=== PATIENT | male | born 1955 | race Hispanic/Latino ===

== ENCOUNTER 2025-07-08 13:26 | Inpatient (IN) | payer MEDICARE ==
[~2025-07-08] VITALS: Ht 172.7 cm; Wt 78.5 kg
[2025-07-08] MEDS: ACETAMINOPHEN 325 MG TAB PO ONE (14:15)
[2025-07-08] MEDS: SODIUM CHLORIDE 0.9% 1000ML 1,000 ML IV ONE (14:15)
[2025-07-08 14:25] LABS: BASOPHILS % 0.1 % (0.0-1.0); EOSINOPHILS % 0.0 % (0.0-6.0); LYMPHOCYTES % 7.1 % (18.0-39.1); MONOCYTES % 4.9 % (4.4-11.3); NEUTROPHILS % 87.4 % (38.7-80.0); RED CELL DISTRIBUTION WIDTH 12.7 % (11.7-14.4)
[2025-07-08 14:34] LABS: INR 1.2
[2025-07-08 14:41] LABS: CORONAVIRUS COVID-19 AG NEGATIVE (NEGATIVE); EST GLOMERULAR FILTRATION RATE 67.0 ML/MIN (>=60)
[2025-07-08] MEDS: SODIUM CHLORIDE 0.9% IV SCH (15:48)
[2025-07-08] MEDS ORDERED: IOPAMIDOL 370 MG/ML 100 ML INFUS..BTL INJ ONE (15:54)
[2025-07-08] MEDS ORDERED: Morphine 2mg Syringe 2 MG/ML SYR IV PRN (16:30)
[2025-07-08] MEDS ORDERED: ONDANSETRON HCL INJ 2MG/ML 2ML 2 MG/ML VIAL IV PRN (16:30)
[2025-07-08] MEDS: POTASSIUM CHLORIDE 20MEQ/100ML 200 ML IV ONE (16:52)
[2025-07-08 17:02] LABS: LEUKOCYTE ESTERASE ,URINE NEGATIVE (NEGATIVE); PROTEIN,URINE DIPSTICK 2+ (NEGATIVE); URINE UROBILINOGEN 0.2 mg/dL (0.2 - 1)
[2025-07-08 17:12] LABS: EPITHELIAL CELLS,URINE FEW /LPF; WBC,URINE (MAN) 0-5 /HPF (0-5)
[2025-07-08 17:47] VITALS: PULSE 100; RESP 18; TEMP 99.3
[2025-07-08 20:00] VITALS: BP 172/81; PULSE 108; RESP 20; TEMP 98.9; O2SAT 96
[2025-07-08 21:00] VITALS: BP 172/81; PULSE 108; RESP 20; TEMP 98.9; O2SAT 96
[2025-07-08 23:00] VITALS: BP 172/81; PULSE 108; RESP 20; TEMP 98.9; O2SAT 96
[2025-07-08] MEDS: SODIUM CHLORIDE 0.9% 1000ML 1,000 ML IV SCH (23:07)
[2025-07-09] VITALS (7 sets, daily range): BP systolic 124–165; BP diastolic 56–81; PULSE 102–118; RESP 17–20; TEMP 97.5–100.8; O2SAT 93–99
[2025-07-09] MEDS ORDERED: GLIMEPIRIDE2 MG PO (04:12)
[2025-07-09] MEDS ORDERED: ATORVASTATIN CA40 MG PO (04:12)
[2025-07-09] MEDS ORDERED: NORVASC5 MG PO (04:12)
[2025-07-09] MEDS ORDERED: METFORMIN HCL850 MG PO (04:12)
[2025-07-09 05:58] LABS: BASOPHILS % 0.3 % (0.0-1.0); EOSINOPHILS % 0.0 % (0.0-6.0); LYMPHOCYTES % 12.6 % (18.0-39.1); MONOCYTES % 4.1 % (4.4-11.3); NEUTROPHILS % 82.6 % (38.7-80.0); RED CELL DISTRIBUTION WIDTH 12.9 % (11.7-14.4)
[2025-07-09 06:55] LABS: EST GLOMERULAR FILTRATION RATE 80.0 ML/MIN (>=60)
[2025-07-09 08:08] LABS: PHOSPHORUS 2.4 MG/DL (2.3-4.7)
[2025-07-09] MEDS ORDERED: DEXTROSE 50% SYRINGE 50 ML IV PRN (09:00)
[2025-07-09] MEDS ORDERED: Morphine 4mg INJECTION 4 MG/ML INJ IV PRN (09:00)
[2025-07-09] MEDS: MAGNESIUM SULFATE 2GM/50ML 50 ML IV SCH (09:19)
[2025-07-09] MEDS: POTASSIUM PHOSPHATE 20 MM in SODIUM CHLORIDE 0.9% 250ML 250 ML IV SCH (09:20)
[2025-07-09] MEDS ORDERED: MAGNESIUM SULFATE 2GM/50ML IV SCH (10:00)
[2025-07-09] MEDS: INSULIN LISPRO 100 UNIT/1 ML 3ML VIAL SQ SCH (11:30)
[2025-07-09] MEDS: KCL 40MEQ/0.9% SOD CHL 1,000 ML IV SCH (11:54)
[2025-07-09] MEDS: ACETAMINOPHEN 325 MG TAB PO PRN (11:54)
[2025-07-09 14:29] LABS: CDIFF AG QUIK CHEK NEGATIVE (NEGATIVE); CDIFF TOX QUIK CHEK NEGATIVE (NEGATIVE)
[2025-07-09] MEDS: SODIUM CHLORIDE 0.9% 250ML 250 ML ONE (18:39)
[2025-07-10] MEDS ORDERED: DICYCLOMINE HCL 20 MG TAB PO STA (00:48)
[2025-07-10 05:46] VITALS: BP 127/73; PULSE 95; RESP 22; TEMP 97.8; O2SAT 95
[2025-07-10 06:09] LABS: BASOPHILS % 0.1 % (0.0-1.0); EOSINOPHILS % 0.2 % (0.0-6.0); LYMPHOCYTES % 12.7 % (18.0-39.1); MONOCYTES % 4.7 % (4.4-11.3); NEUTROPHILS % 81.2 % (38.7-80.0); RED CELL DISTRIBUTION WIDTH 12.5 % (11.7-14.4)
[2025-07-10 06:24] LABS: EST GLOMERULAR FILTRATION RATE 79.0 ML/MIN (>=60)
[2025-07-10 06:44] LABS: PHOSPHORUS 2.0 MG/DL (2.3-4.7)
[2025-07-10 08:17] VITALS: BP 107/60; PULSE 96; RESP 17; TEMP 98; O2SAT 96
[2025-07-10 09:00] VITALS: BP 107/60; PULSE 96; RESP 17; TEMP 98; O2SAT 96
[2025-07-10] MEDS ORDERED: DICYCLOMINE HCL 20 MG TAB PO SCH (09:00)
[2025-07-10] MEDS: POTASSIUM CHLORIDE 20 MEQ TAB CR PO ONE (09:16)
[2025-07-10 10:45] LABS: BAND NEUTROPHILS % (MANUAL) 7 %; LYMPHOCYTES % (MANUAL) 8 % (19-48); METAMYELOCYTES % (MANUAL) 3 % (0-0); MONOCYTES % (MANUAL) 4 % (3.4-9.0); NEUTROPHILS % (MANUAL) 73 % (40-74); PLATELET ESTIMATE ADEQUATE; PLATELET MORPHOLOGY COMMENT NORMAL; RBC MORPHOLOGY COMMENT NORMAL; REACTIVE LYMPHOCYTES 5
[2025-07-10 11:31] VITALS: BP 119/72; PULSE 94; RESP 18; TEMP 97.6; O2SAT 97
[2025-07-10] MEDS: POTASSIUM PHOSPHATE 20 MM in SODIUM CHLORIDE 0.9% 250ML 250 ML IV ONE (12:51)
[2025-07-10 16:17] VITALS: BP 146/75; PULSE 92; RESP 18; TEMP 98.5; O2SAT 96
[2025-07-10 20:00] VITALS: BP 130/68; PULSE 82; RESP 20; TEMP 97.3; O2SAT 100
[2025-07-10] MEDS: METRONIDAZOLE 500MG/NS 100ML 100 ML IV SCH (21:44)
[2025-07-11] VITALS (8 sets, daily range): BP systolic 107–135; BP diastolic 58–97; PULSE 72–89; RESP 18–20; TEMP 97.7–99.6; O2SAT 96–100
[2025-07-11] MEDS ORDERED: SODIUM CHLORIDE 0.9% 100 ML ONE (08:39)
[2025-07-11] MEDS: CEFTRIAXONE 2 GM in SODIUM CHLORIDE 0.9% 100 ML IV SCH (10:00)
[2025-07-11 10:24] LABS: BASOPHILS % 1.1 % (0.0-1.0); EOSINOPHILS % 2.9 % (0.0-6.0); LYMPHOCYTES % 14.6 % (18.0-39.1); MONOCYTES % 10.8 % (4.4-11.3); NEUTROPHILS % 68.9 % (38.7-80.0); RED CELL DISTRIBUTION WIDTH 13.0 % (11.7-14.4)
[2025-07-11 10:47] LABS: PHOSPHORUS 1.9 MG/DL (2.3-4.7)
[2025-07-11 10:48] LABS: EST GLOMERULAR FILTRATION RATE 90.0 ML/MIN (>=60)
[2025-07-11 11:03] LABS: BAND NEUTROPHILS % (MANUAL) 3 %; EOSINOPHILS % (MANUAL) 2 % (0-7); LYMPHOCYTES % (MANUAL) 21 % (19-48); MONOCYTES % (MANUAL) 7 % (3.4-9.0); NEUTROPHILS % (MANUAL) 65 % (40-74); PLATELET ESTIMATE ADEQUATE; PLATELET MORPHOLOGY COMMENT NORMAL; REACTIVE LYMPHOCYTES 2
[2025-07-11] MEDS: CHOLESTYRAMINE 4 GM PACKET PO SCH (11:52)
[2025-07-11] MEDS: HYDROCODONE/APAP 7.5MG-325MG 1 EA TAB PO PRN (11:59)
[2025-07-12] VITALS (7 sets, daily range): BP systolic 114–138; BP diastolic 57–83; PULSE 63–85; RESP 18–24; TEMP 96.2–99.7; O2SAT 96–97
[2025-07-12 08:27] LABS: BASOPHILS % 0.7 % (0.0-1.0); EOSINOPHILS % 2.2 % (0.0-6.0); LYMPHOCYTES % 16.7 % (18.0-39.1); MONOCYTES % 11.4 % (4.4-11.3); NEUTROPHILS % 66.5 % (38.7-80.0); RED CELL DISTRIBUTION WIDTH 13.2 % (11.7-14.4)
[2025-07-12 08:42] LABS: PHOSPHORUS 2.6 MG/DL (2.3-4.7)
[2025-07-12 09:18] LABS: EST GLOMERULAR FILTRATION RATE 90.0 ML/MIN (>=60)
[2025-07-12 12:24] LABS: BAND NEUTROPHILS % (MANUAL) 26 %; EOSINOPHILS % (MANUAL) 6 % (0-7); LYMPHOCYTES % (MANUAL) 25 % (19-48); METAMYELOCYTES % (MANUAL) 1 % (0-0); MONOCYTES % (MANUAL) 8 % (3.4-9.0); NEUTROPHILS % (MANUAL) 33 % (40-74); REACTIVE LYMPHOCYTES 1
[2025-07-12 12:25] LABS: PLATELET ESTIMATE ADEQUATE; PLATELET MORPHOLOGY COMMENT NORMAL; RBC MORPHOLOGY COMMENT NORMAL
[2025-07-12] MEDS ORDERED: CIPROFLOXACIN 400 MG/D5W 200ML 200 ML IV SCH (22:30)
[2025-07-13] VITALS: BP 125/72; PULSE 62; RESP 18; TEMP 98.6; O2SAT 98
[2025-07-13] MEDS: CIPROFLOXACIN 500 MG TAB PO STA (00:09)
[2025-07-13 08:00] VITALS: BP 127/69; PULSE 64; RESP 20; TEMP 99.5; O2SAT 100
[2025-07-13] MEDS: CIPROFLOXACIN 500 MG TAB PO SCH (08:48)
[2025-07-13 16:00] VITALS: BP 119/70; PULSE 66; RESP 17; TEMP 99; O2SAT 100
[2025-07-13 20:00] VITALS: BP 120/70; PULSE 68; RESP 18; TEMP 97.9; O2SAT 100
[2025-07-13 21:00] VITALS: BP 119/70; PULSE 66; RESP 17; TEMP 99; O2SAT 100
[2025-07-14 08:56] VITALS: BP 128/74; PULSE 57; RESP 18; TEMP 97.2; O2SAT 100
[2025-07-14 10:00] VITALS: BP 128/74; PULSE 57; RESP 18; TEMP 97.2; O2SAT 100
[2025-07-14 10:01] LABS: BASOPHILS % 0.6 % (0.0-1.0); EOSINOPHILS % 2.4 % (0.0-6.0); LYMPHOCYTES % 19.7 % (18.0-39.1); MONOCYTES % 8.1 % (4.4-11.3); NEUTROPHILS % 63.2 % (38.7-80.0); RED CELL DISTRIBUTION WIDTH 13.2 % (11.7-14.4)
[2025-07-14 10:16] LABS: EST GLOMERULAR FILTRATION RATE 87.0 ML/MIN (>=60); PHOSPHORUS 2.8 MG/DL (2.3-4.7)
[2025-07-14 11:41] VITALS: BP 120/63; PULSE 72; RESP 18; TEMP 97.6; O2SAT 99
[2025-07-14 12:27] LABS: BAND NEUTROPHILS % (MANUAL) 2 %; EOSINOPHILS % (MANUAL) 5 % (0-7); LYMPHOCYTES % (MANUAL) 12 % (19-48); MONOCYTES % (MANUAL) 5 % (3.4-9.0); NEUTROPHILS % (MANUAL) 73 % (40-74); REACTIVE LYMPHOCYTES 3
[2025-07-14 12:28] LABS: PLATELET ESTIMATE ADEQUATE; PLATELET MORPHOLOGY COMMENT NORMAL
[2025-07-14 15:50] VITALS: BP 116/63; PULSE 69; RESP 18; TEMP 98.1; O2SAT 99
[2025-07-14 20:00] VITALS: BP 127/67; PULSE 62; RESP 18; TEMP 98; O2SAT 100
[2025-07-14 21:00] VITALS: BP 127/67; PULSE 62; RESP 18; TEMP 98; O2SAT 100
[2025-07-14] MEDS ORDERED: HYDROCODONE/APAP 7.5MG-325MG 1 EA TAB PO PRN (22:45)
[2025-07-14] MEDS ORDERED: IOPAMIDOL 370 MG/ML 100 ML INFUS..BTL INJ ONE (23:19)
[2025-07-15] VITALS (7 sets, daily range): BP systolic 118–125; BP diastolic 55–71; PULSE 57–67; RESP 16–18; TEMP 97.4–98.3; O2SAT 98–100
[2025-07-15] MEDS ORDERED: Morphine 2mg Syringe 2 MG/ML SYR IV PRN (00:30)
[2025-07-15 06:35] LABS: BASOPHILS % 0.5 % (0.0-1.0); EOSINOPHILS % 1.7 % (0.0-6.0); LYMPHOCYTES % 23.1 % (18.0-39.1); MONOCYTES % 7.5 % (4.4-11.3); NEUTROPHILS % 60.5 % (38.7-80.0); RED CELL DISTRIBUTION WIDTH 13.3 % (11.7-14.4)
[2025-07-15 06:51] LABS: EST GLOMERULAR FILTRATION RATE 75.0 ML/MIN (>=60)
[2025-07-15] MEDS ORDERED: IOPAMIDOL 370 MG/ML 100 ML INFUS..BTL INJ ONE (08:23)
[2025-07-15 09:41] LABS: LYMPHOCYTES % (MANUAL) 19 % (19-48); MONOCYTES % (MANUAL) 8 % (3.4-9.0); NEUTROPHILS % (MANUAL) 73 % (40-74); NUCLEATED RED BLOOD CELLS 1; PLATELET ESTIMATE ADEQUATE
[2025-07-15 09:42] LABS: PLATELET MORPHOLOGY COMMENT NORMAL; RBC MORPHOLOGY COMMENT NORMAL
[2025-07-15] MEDS: METRONIDAZOLE 500MG/NS 100ML 100 ML IV SCH (19:15)
[2025-07-15] MEDS: CEFEPIME 2 GM in SODIUM CHLORIDE 0.9% 100 ML IV SCH (21:35)
[2025-07-16] VITALS (8 sets, daily range): BP systolic 110–142; BP diastolic 51–69; PULSE 59–71; RESP 16–19; TEMP 97–98.1; O2SAT 97–99
[2025-07-16 06:44] LABS: BASOPHILS % 0.7 % (0.0-1.0); EOSINOPHILS % 1.5 % (0.0-6.0); LYMPHOCYTES % 15.0 % (18.0-39.1); MONOCYTES % 7.1 % (4.4-11.3); NEUTROPHILS % 68.9 % (38.7-80.0); RED CELL DISTRIBUTION WIDTH 13.5 % (11.7-14.4)
[2025-07-16 07:17] LABS: EST GLOMERULAR FILTRATION RATE 94.0 ML/MIN (>=60)
[2025-07-16 12:21] LABS: EOSINOPHILS % (MANUAL) 1 % (0-7); LYMPHOCYTES % (MANUAL) 15 % (19-48); MONOCYTES % (MANUAL) 7 % (3.4-9.0); NEUTROPHILS % (MANUAL) 77 % (40-74); PLATELET ESTIMATE ADEQUATE; PLATELET MORPHOLOGY COMMENT NORMAL; RBC MORPHOLOGY COMMENT NORMAL
[2025-07-17] VITALS (9 sets, daily range): BP systolic 112–136; BP diastolic 59–72; PULSE 51–69; RESP 16–18; TEMP 97.4–98.6; O2SAT 98–100
[2025-07-17] MEDS: CIPROFLOXACIN 500 MG TAB PO STA (00:51)
[2025-07-17 07:09] LABS: BASOPHILS % 0.4 % (0.0-1.0); EOSINOPHILS % 1.4 % (0.0-6.0); LYMPHOCYTES % 19.2 % (18.0-39.1); MONOCYTES % 7.7 % (4.4-11.3); NEUTROPHILS % 65.6 % (38.7-80.0); RED CELL DISTRIBUTION WIDTH 13.7 % (11.7-14.4)
[2025-07-17] MEDS: CIPROFLOXACIN 500 MG TAB PO SCH (08:40)
[2025-07-17 11:04] LABS: EOSINOPHILS % (MANUAL) 1 % (0-7); LYMPHOCYTES % (MANUAL) 26 % (19-48); MONOCYTES % (MANUAL) 4 % (3.4-9.0); MYELOCYTES % (MANUAL) 1 % (0-0); NEUTROPHILS % (MANUAL) 67 % (40-74); PLATELET ESTIMATE SLIGHTLY INCREASED; RBC MORPHOLOGY COMMENT NORMAL; REACTIVE LYMPHOCYTES 1
[2025-07-17 11:05] LABS: PLATELET MORPHOLOGY COMMENT RARE EDTA CLUMPING
[2025-07-18 03:39] VITALS: BP 129/71; PULSE 58; RESP 16; TEMP 97.6; O2SAT 98
[2025-07-18 08:15] VITALS: BP 123/69; PULSE 56; RESP 18; TEMP 98.1; O2SAT 98
[2025-07-18 09:00] VITALS: BP 123/69; PULSE 56; RESP 18; TEMP 98.1; O2SAT 98
[2025-07-18 11:30] VITALS: BP_SYST 123; BP_DIAS 68; BP_DIAS 69; PULSE 54; PULSE 56; RESP 18; RESP 19; TEMP 98.1; O2SAT 98; O2SAT 99
[2025-07-18 16:25] VITALS: BP 131/67; PULSE 56; RESP 20; TEMP 98.1; O2SAT 99
[2025-07-18 20:00] VITALS: BP 133/63; PULSE 54; RESP 20; TEMP 99.2; O2SAT 97
[2025-07-18 21:45] LABS: BASOPHILS % 0.4 % (0.0-1.0); EOSINOPHILS % 1.6 % (0.0-6.0); LYMPHOCYTES % 30.4 % (18.0-39.1); MONOCYTES % 9.4 % (4.4-11.3); NEUTROPHILS % 55.5 % (38.7-80.0); RED CELL DISTRIBUTION WIDTH 14.0 % (11.7-14.4)
[2025-07-19] VITALS: BP_SYST 126; BP_SYST 95; BP_DIAS 57; PULSE 55; PULSE 61; RESP 18; TEMP 97.6; TEMP 98; O2SAT 99
[2025-07-19] MEDS: POTASSIUM CHLORIDE 10MEQ EA PO STA (00:47)
[2025-07-19 04:00] VITALS: BP 128/73; PULSE 50; RESP 19; TEMP 98.7; O2SAT 100
[2025-07-19 05:39] LABS: BASOPHILS % 0.6 % (0.0-1.0); EOSINOPHILS % 1.4 % (0.0-6.0); LYMPHOCYTES % 28.7 % (18.0-39.1); MONOCYTES % 9.3 % (4.4-11.3); NEUTROPHILS % 57.5 % (38.7-80.0); RED CELL DISTRIBUTION WIDTH 13.7 % (11.7-14.4)
[2025-07-19 05:56] LABS: EST GLOMERULAR FILTRATION RATE 99 ML/MIN (>=60); PHOSPHORUS 2.7 MG/DL (2.3-4.7)
[2025-07-19 08:15] VITALS: BP 126/69; PULSE 56; RESP 19; TEMP 98.4; O2SAT 100
[2025-07-19 09:30] VITALS: BP 126/69; PULSE 56; RESP 19; TEMP 98.4; O2SAT 98
== END 2025-07-19 11:50 | disposition home health service (06) | DRG 871 ==
LOC: ER 13:44 → ERHOLD 16:23 → MED/SURG2 19:29
PROVIDERS: ADMIT Internal Medicine; ATTEND Internal Medicine
PROC: 3E0333Z Introduction of Anti-inflammatory into Peripheral Vein, Percutaneous Approach (ICD-10-PCS; principal; 2025-07-08)
DX: A41.9 Sepsis, unspecified organism (principal); R65.21 Severe sepsis with septic shock; E87.20 Acidosis, unspecified; A09 Infectious gastroenteritis and colitis, unspecified; N17.9 Acute kidney failure, unspecified; E11.9 Type 2 diabetes mellitus without complications; A05.9 Bacterial foodborne intoxication, unspecified; E86.0 Dehydration; E87.6 Hypokalemia; I10 Essential (primary) hypertension; E78.5 Hyperlipidemia, unspecified; Z11.52 Encounter for screening for COVID-19; F17.200 Nicotine dependence, unspecified, uncomplicated; Z79.84 Long term (current) use of oral hypoglycemic drugs
CPT/HCPCS: 36415; 71045; 74177; 80048; 80053; 81001; 82948; 83036; 83605; 83630; 83735; 83993; 84100; 85025; 85610; 85730; 87040; 87045; 87086; 87177; 87324; 87328; 87449; 93005; 96372; 99252; 99284; J0692; J0696; J2470; J2543; J3475; J3480; J7030; J7050; Q9967